=== PATIENT | female | born 1945 | race Hispanic/Latino ===

== ENCOUNTER → 2017-10-03 | Outpatient (CLI) | payer OTHER ==
[~2017-10-03] MED LIST: LISI2.5T2 PO; SIMV5TAB6 PO
== END | disposition home or self-care (01) ==
LOC: RAH 12:31
PROVIDERS: ATTEND Family Medicine
DX: Z12.31 Encounter for screening mammogram for malignant neoplasm of breast (principal)
CPT/HCPCS: 77067

== ENCOUNTER → 2023-06-12 | Outpatient (CLI) | payer OTHER ==
[~2023-06-12] MED LIST changes: +LISI2.5T13 PO; -LISI2.5T2 PO; +SIMV5TAB58 PO; -SIMV5TAB6 PO
== END | disposition home or self-care (01) ==
LOC: RAH 10:47
PROVIDERS: ATTEND Internal Medicine Gastroenterology
DX: R10.13 Epigastric pain (principal); R14.0 Abdominal distension (gaseous)
CPT/HCPCS: 78264; A9541

== ENCOUNTER → 2024-03-04 | Outpatient (CLI) | payer OTHER | END | disposition home or self-care (01) | LOC: RAH 11:02 | PROVIDERS: ATTEND Family Medicine | DX: Z12.31 Encounter for screening mammogram for malignant neoplasm of breast (principal); R92.323 Mammographic fibroglandular density, bilateral breasts | CPT/HCPCS: 77067 ==

== ENCOUNTER → 2025-05-07 | Outpatient (CLI) | payer OTHER ==
--- NOTE | 2025-05-11 08:25 | HMCIMG ---
BILATERAL BREAST ULTRASOUND: CLINICAL HISTORY:: COMPARISON: Follow-up for mammogram from 03/30/2025. Finding: Real-time examination of the both breasts demonstrates heterogeneous echotexture throughout both the breasts. Left breast at 4:00 there is 2 hypoechoic lesion seen the larger lesion has irregular border measuring 0.9 x 0.6 x 0.9 cm with vascularity. There is a satellite lesion measuring 0.7 x 0.3 x 0.5 cm. The right breast has no lesion seen. There is benign-appearing bilateral axillary lymph node on the right measuring 0.8 x 0.5 x 0.8 cm. The left axillary lymph node measuring 1.0 x 0.7 x 1.0 cm.. IMPRESSION: Left breast at 4:00 there is 2 hypoechoic lesion seen which is amenable for ultrasound-guided biopsy for histological sampling. FINAL ASSESSMENT: ACR: BI-RAD -4. Suspicious Finding.
--- NOTE | 2025-05-11 08:27 | HMCIMG ---
DIGITAL left breast DIAGNOSTIC MAMMOGRAM Technique: The digital mammographic examination of left breast in craniocaudal, mediolateral oblique views along with CAD was obtained. Coned-down compression view of the left breast along with ultrasound is also obtained. History: This is a 79 years year-old female , para Ab . Patient has no family history of breast cancer. Patient has no complaint Reference:Prior mammogram from 03/30/2025, 03/04/2024, 10/03/2017 and 02/08/2016 are available for comparison.. Breast composition: Breast composition C: The breasts are heterogeneously dense, which may obscure small masses. Finding: The digital mammographic examination of left breast in craniocaudal and mediolateral oblique view along with CAD demonstrates a density seen near the chest wall at 4:00 which ultrasound demonstrate to be 2 solid hypoechoic lesion.. There is no evidence of any dendritic mass, cluster microcalcification or architectural distortion. The retromammary fat appears to be normal. IMPRESSION: Left breast and retromammary fat region near the chest wall there is 2 densities seen which is also seen and ultrasound. I would recommend ultrasound-guided biopsy for further evaluation for histological sampling.. FINAL ASSESSMENT: ACR: BI-RAD -4. Suspicious Finding. NOTE: IF A WORK-UP OF THIS PATIENT LEADS TO A BIOPSY, PLEASE FORWARD A COPY OF THE PATHOLOGY REPORT TO OUR OFFICE REQUIRED BY [employer] MARCH 18, 1994. A NEGATIVE MAMMOGRAM SHOULD NOT PRECLUDE BIOPSY OF A CLINICALLY PALPABLE SUSPICIOUS MASS, 10% OF BREAST CANCERS ARE MAMMOGRAPHICALLY OCCULT. THIS MAMMOGRAPHY FACILITY IS FULLY ACCREDITED BY THE [employer]OD AND DRUG [employer]MIN[employer]RATION (FDA). THANK YOU FOR THIS REFERRAL.
== END | disposition home or self-care (01) ==
LOC: RAH 08:46
PROVIDERS: ATTEND Family Medicine
DX: N63.23 Unspecified lump in the left breast, lower outer quadrant (principal); R92.8 Other abnormal and inconclusive findings on diagnostic imaging of breast; R92.333 Mammographic heterogeneous density, bilateral breasts
CPT/HCPCS: 77066